=== PATIENT | female | born 1965 | race Caucasian/White ===

== ENCOUNTER 2023-09-25 23:14 | Emergency (ER) | payer MEDICAID, SELFPAY ==
[2023-09-25 23:30] VITALS: BP 146/86; PULSE 96; O2SAT 98; BMI 17.8
[2023-09-25 23:35] VITALS: BP 170/84; PULSE 80; RESP 17; TEMP 36.3; O2SAT 98
--- NOTE | 2023-09-25 23:43 | PC.NURSE ---
called shira vergara she has the right to refuse at this time
--- NOTE | 2023-09-25 23:57 | PC.NURSE ---
pt refused fluids and ekg , provider aware
[2023-09-26 00:02] LABS: Basophils Percent Auto 0.1 % (0-2); Eosinophils Absolute Auto 0.2 X10*3/uL (0.0-0.4); Eosinophils Percent Auto 2.5 % (0-4); Hematocrit 38.9 % (37.0-47.0); Hemoglobin 13.8 g/dl (12.0-16.0); Imm Gran Abs Auto 0.01 X10*3/uL (0.00-0.03); Imm Gran Pct Auto 0.1 % (0.0-0.4); Lymphocytes Absolute Auto 3.5 X10*3/uL (1.2-4.9); Lymphocytes Percent Auto 45.1 % (20-40); MANUAL DIFF FLAG NO; Mean Corpuscular HGB Conc 35.5 g/dl (31.0-35.0); Mean Corpuscular Hemoglobin 29.6 pg (27.0-33.0); Mean Corpuscular Volume 83.5 fL (80.0-98.0); Mean Platelet Volume 10.5 fL (9.4-12.3); Monocytes Absolute Auto 0.5 X10*3/uL (0.1-1.2); Neutrophils Absolute Auto 3.5 x10*3/uL (2.0-8.3); Neutrophils Percent Auto 45.2 % (45-73); Platelet Count 243 X10*3/uL (160-400); Red Blood Count 4.66 X10*6/uL (4.20-5.50); Red Cell Distribution Width 12.4 % (11.0-16.0); White Blood Count 7.7 X10*3/uL (4.8-10.8)
[2023-09-26 00:19] LABS: Anion Gap 12 (12-20); Blood Urea Nitrogen 10 mg/dL (9-16); Calcium 9.5 mg/dL (8.4-10.2); Carbon Dioxide 31 mmol/L (22-29); Chloride 104 mmol/L (96-108); Creatinine Clr Calc Pharmacy 59.7; Estimated Glomerular Filt Rate > 60; Glucose Random 136 mg/dL (60-115); Magnesium 1.9 mg/dL (1.6-2.6); Potassium 2.7 mmol/L (3.3-5.1); Sodium 144 mmol/L (135-145)
[2023-09-26] MEDS: Potassium Chloride/H20 10 MEQ/100 ML PIGGYBACK 100 MEQ IV (00:47)
--- NOTE | 2023-09-26 02:17 | MHC.EDTECH ---
Patient Refused EKG. RN aware
--- NOTE | 2023-09-26 02:53 | ED_ITS ---
HPI - General Adult General Chief complaint: Psychiatric Symptoms Stated complaint: dehydrated? low potassium Time Seen by Provider: 09/25/23 23:15 Source: EMS Mode of arrival: EMS Limitations: language barrier History of Present Illness ED Provider: Dr. Hu HPI narrative: Patient is a new admission to [facility], she was sent to the ED because she is refusing to drink and eat and refusing to take her potassium. Onset (ago): week(s) Related Data Allergies Allergy/AdvReac Type Severity Reaction Status Date / Time No Known Allergies Allergy Verified 09/25/23 23:32 Review of Systems 2 Review of Systems: Yes all other systems are reviewed and are negative Neurologic: Denies Sensory deficit (Neuro) PMFSH Social History Social History Advance Directives: No Advance Directives Information Provided: Yes Physical Exam ED Vital Signs: Vital Signs - 24 hr 09/25/23 23:35 Temperature 97.4 F Pulse Rate 80 Respiratory Rate 17 Blood Pressure 170/84 H Pulse Oximetry 98 Oxygen Delivery Method Room Air BMI result Body Mass Index 17.8 Const Other: Female looking older than stated age flat affect Orientation/consciousness: oriented to person and patient oriented x3 Limitations: no limitations HENMT Head: Yes normal to inspection Ears: external ears normal General nose exam: Normal external nose present Mouth: Normal oral and palatal mucosa present and oropharynx normal Throat: Yes posterior oropharynx normal Eyes General: appearance normal, both eyes and all related structures Neck Neck: Yes normal visual inspection Chest Chest palpation & inspection: normal inspection of the chest Resp Auscultation: clear to auscultation bilaterally Cardio Jugular venous distension: no JVD Rate: regular rate Rhythm: regular rhythm Heart sounds: S1 normal heart sound present and S2 normal heart sound present GI Inspection: Yes normal to inspection Palpation (GI): Soft to palpation, nontender and No hepatosplenomegaly present Auscultation: normal bowel sounds General: Yes no CVA tenderness Back/Spine/Pelvis Back: no CVA tenderness Skin General skin exam: no rashes or lesions noted Neuro General: oriented to person and patient oriented x3 Cranial nerves: Yes CN's II-XII intact bilaterally Motor exam (neuro): 5/5 motor strength present throughout Sensory Exam: No Sensory deficit (Neuro) Extrem General: Yes normal to inspection Psych Appearance: grossly normal Course Reevaluation(s) Reevaluation #1: Patient refusing to eat or drink refusing to get IV fluids Time: 02:56 Medications Administered Discontinued Medications Generic Name Dose Route Start Last Admin Trade Name Jamee PRN Reason Stop Dose Admin Sodium Chloride 1,000 mls @ 500 mls/hr 09/25/23 23:30 09/25/23 23:56 Ns IVCONT 09/26/23 01:29 Not Given .Q2H CHAVEZ Potassium Chloride 10 meq in 100 mls @ 100 mls/hr 09/26/23 00:21 09/26/23 00:47 Potassium Chloride/H20 IV 09/26/23 01:20 100 mls/hr ONCE ONE Administration Potassium Chloride 20 meq 09/26/23 00:21 09/26/23 00:47 Potassium Chloride Er 20 Meq Tab.Er.Prt PO 09/26/23 00:22 Not Given ONCE ONE Medical Decision Making Differential Diagnosis Differential Diagnoses: The differential diagnosis associated with the presentation includes (hypokalemia, dehydration, depression) Admission/Observation Consideration of admission/observation: Escalation of care including admission/observation considered (upon arrival patient considered for admission) Lab Data 09/25/23 23:57 09/25/23 23:57 Labs: Lab Results 09/25/23 Range/Units 23:57 WBC 7.7 (4.8-10.8) X10*3/uL RBC 4.66 (4.20-5.50) X10*6/uL Hgb 13.8 (12.0-16.0) g/dl Hct 38.9 (37.0-47.0) % MCV 83.5 (80.0-98.0) fL MCH 29.6 (27.0-33.0) pg MCHC 35.5 H (31.0-35.0) g/dl RDW 12.4 (11.0-16.0) % Plt Count 243 (160-400) X10*3/uL MPV 10.5 (9.4-12.3) fL Immature Gran % (Auto) 0.1 (0.0-0.4) % Neut % (Auto) 45.2 (45-73) % Lymph % (Auto) 45.1 H (20-40) % [place] % (Auto) 7.0 (2-11) % Eos % (Auto) 2.5 (0-4) % Baso % (Auto) 0.1 (0-2) % Lymph # (Auto) 3.5 (1.2-4.9) X10*3/uL [place] # (Auto) 0.5 (0.1-1.2) X10*3/uL Eos # (Auto) 0.2 (0.0-0.4) X10*3/uL Baso # (Auto) 0.0 (0.0-0.2) X10*3/uL Abs Immat Gran (auto) 0.01 (0.00-0.03) X10*3/uL Absolute Neuts (auto) 3.5 (2.0-8.3) x10*3/uL Absolute Nucleated RBC 0.000 (0.0-0.012) X10*3/uL Nucleated RBC % (auto) 0.0 (0.0-0.2) /100WBC Sodium 144 (135-145) mmol/L Potassium 2.7 L* (3.3-5.1) mmol/L Chloride 104 (96-108) mmol/L Carbon Dioxide 31 H (22-29) mmol/L Anion Gap 12 (12-20) BUN 10 (9-16) mg/dL Creatinine 0.73 (0.5-1.4) mg/dL Estim Creat Clear Calc 59.7 Estimated GFR > 60 Random Glucose 136 H (60-115) mg/dL Calcium 9.5 (8.4-10.2) mg/dL Magnesium 1.9 (1.6-2.6) mg/dL Independent Historian Clinical information obtained from an independent historian. History obtained from or confirmed by: EMS Chronic Conditions Patient?s care impacted by: Other (psychiatric illness) Social Determinants Patient?s care significantly limited by Social Determinants of Health including: Low income Discharge Plan Discharge Clinical Impression: Depression, Acute hypokalemia Patient Disposition: Xfer Psychiatric Hosp Transfer Details: return back to [facility] Instructions: Potassium Content of Foods List (ED), Hypokalemia (ED) Print Language: Citizen Of [place]
--- NOTE | 2023-09-26 03:09 | PC.NURSE ---
nurse to nurse report given
[2023-09-26 03:10] VITALS: BP 170/84; PULSE 80; RESP 17; TEMP 36.3; O2SAT 98
--- NOTE | 2023-09-26 03:15 | PC.NURSE ---
When I spoke to Kadi Vergara RN earlier this evening, she reported via phone call that Kadi Vergara is not too familiar with the pt however she states that she has the capacity to refuse meds/treatment ( not on antunez order) and that the pt told them she had CP. Pt states that she denied ever having CP and that Kadi vergara sent her against my own will . K was 2.7- pt refused PO medication however allowed us to replace via IV. Pt also refused EKG and fluids. Provider made aware
[2023-09-26 05:27] VITALS: BP 170/84; PULSE 80; RESP 17; TEMP 36.7
== END 2023-09-26 05:28 ==
PROVIDERS: Emergency Provider Emergency Medicine
DX: F32.A Depression, unspecified (principal); E87.6 Hypokalemia; R44.0 Auditory hallucinations
CPT/HCPCS: 36415; 80048; 83735; 85025; 96365; 96366; 99284; 99285; J3480

== ENCOUNTER 2023-09-30 16:45 | Emergency (ER) | payer MEDICAID, SELFPAY ==
--- NOTE | 2023-09-30 16:55 | ECG_ITS ---
Test Reason : ELECTROLYTE DISTURBANCE Blood Pressure : / mmHG Vent. Rate : 077 BPM Atrial Rate : 077 BPM P-R Int : 116 ms QRS Dur : 086 ms QT Int : 416 ms P-R-T Axes : 069 058 014 degrees QTc Int : 470 ms Normal sinus rhythm Nonspecific ST abnormality Abnormal ECG No previous ECGs available Referred By: Mercedez Vang Electronically Signed By:RONNI MAJOR
[2023-09-30 17:09] VITALS: BP 132/92; PULSE 88; O2SAT 95; BMI 16.8
[2023-09-30 17:18] VITALS: BP 112/78; PULSE 84; RESP 16; TEMP 36.3; O2SAT 98
--- NOTE | 2023-09-30 17:22 | ED.GENADULT ---
HPI - General Adult General Chief complaint: Failure to Thrive Stated complaint: FAILURE TO THRIVE Time Seen by Provider: 09/30/23 16:52 Source: EMS Mode of arrival: EMS Limitations: other ( unwilling to talk much) History of Present Illness ED Provider: Dr. Mercedez Vang HPI narrative: patient comes to the emergency room via ambulance from [facility] [address]. According to the caretakers at [facility], the patient's potassium today was 2.9. They reported that the patient has been refusing to eat, because patient has told them that patient believes that the food has been poisoned Upon arrival, patient states that she is very hungry and wants pudding. Patient refusing to talk about anything else other than wanting to eat pudding Related Data Allergies Allergy/AdvReac Type Severity Reaction Status Date / Time No Known Allergies Allergy Verified 09/30/23 17:13 Review of Systems Review of Systems: Constitutional : No Weight loss, No Fever, No Chills, No Night Sweats, No Fatigue, No Malaise ENT/Mouth : No Hearing loss, No Ear Pain, No Nasal Congestion, No Sinus Pain, No Hoarseness, No sore throat, No Rhinorrhea, No Swallowing Difficulty Eyes: No Eye Pain, No Swelling, No Redness, No Foreign Body, No Discharge, No Vision Changes Cardiovascular : No Chest Pain, No SOB, No Dyspnea on Exertion, No Orthopnea, No Edema, No Palpitations Respiratory : No Cough, No Sputum, No Wheezing, No Smoke Exposure, No Dyspnea Gastrointestinal : No Nausea, No Vomiting, No Diarrhea, No Constipation, No abdominal Pain, No Hematochezia, No Melena Genitourinary : no irregular bleeding, No Dysuria, No Urinary Frequency, No Hematuria, No Urinary Incontinence, No Urgency, No Flank Pain, No Urinary Flow Changes, No Hesitancy Musculoskeletal : No joint pain, No Myalgias, No Joint Swelling Skin : No Skin Lesions, No rash Neuro : No Weakness, No Numbness, No Paresthesias, No Loss of Consciousness, No Dizziness, No Headache Psych : No Anxiety/Panic, No Depression, No SI/HI/AH/VH, No Social Issues, Heme/Lymph: No Bruising, No Bleeding,No Lymphadenopathy Endocrine : No Polyuria, No Polydipsia, No Temperature Intolerance Yes Other ( unwilling to talk) [facility] Past Medical History Medical History Continuous auditory hallucinations Social History Social History Smoked in Last 30 Days: No Use of substances other than those prescribed or required for medical reasons: No Advance Directives: No Advance Directives Information Provided: No Do you have a plan to hurt others: No Plan Patient : No Physical Exam ED Vital Signs: Vital Signs - 24 hr 09/30/23 17:18 09/30/23 21:59 Temperature 97.3 F Pulse Rate 84 93 Respiratory Rate 16 16 Blood Pressure 112/78 134/92 H Pulse Oximetry 98 98 Oxygen Delivery Method Room Air Room Air BMI result Body Mass Index 16.8 Const Other: Appearance: Alert. no acute distress Eyes: Pupils equal, round and reactive to light. ENT: Pharynx normal. Neck: Normal inspection. Neck supple. No lymph nodes noted. No crepitus CVS: Normal heart rate and rhythm. Pulses normal. Normal S1 and S2 Respiratory: No respiratory distress. Breath sounds normal. No Wheezing. No rales Abdomen: Soft and nontender. No rigidity. No distention. Skin: Skin warm and dry. Normal skin color. Normal skin turgor. Extremities: No lower extremity edema. No Lacerations. No Rash Neuro: Oriented X 3. No motor deficit. No sensory deficit. Moving all extremities. No slurred speech. CN 2 through 12 grossly intact Psych: calm, cooperative, normal affect Course Course Course Narrative: - I discussed with the patient that we will repeat the lab work and we will also give her pudding Medications Administered Generic Name Dose Route Start Last Admin Trade Name Freq PRN Reason Stop Dose Admin Potassium Chloride 10 meq in 100 mls @ 100 mls/hr 10/01/23 01:15 10/01/23 01:55 Potassium Chloride/H20 IV 10/01/23 05:14 100 mls/hr Q1H CHAVEZ Administration Discontinued Medications Generic Name Dose Route Start Last Admin Trade Name Freq PRN Reason Stop Dose Admin Potassium Chloride 40 meq 10/01/23 00:42 10/01/23 01:56 Potassium Chloride Er 20 Meq Tab.Er.Prt PO 10/01/23 00:43 Not Given ONCE ONE Medical Decision Making Medical Decision Making MDM Narrative: my interpretation of labs: Normal hematology, Chemistry shows a potassium of 2.9. - Patient is refusing to eat anything p.o.. Patient refusing to take potassium p.o. either pill form or liquid form. However, patient states that she is agreeable to take potassium through her vein. - A line has been inserted, patient is getting potassium IV, four piggyback of 10 mEq will be given, should be ready for discharge in the morning. - Sign-out given to my colleague Dr. Blake Differential Diagnosis Differential Diagnoses: The differential diagnosis associated with the presentation includes ( anorexia, hypokalemia) Admission/Observation Consideration of admission/observation: Escalation of care including admission/observation considered ( given patient's anorexia and labs, observation was considered) Lab Data [facility] Lab Attestation statement: I reviewed the patient's lab results. 09/30/23 23:32 09/30/23 23:32 Labs: Lab Results 09/30/23 09/30/23 Range/Units 18:18 23:32 WBC 8.7 (4.8-10.8) X10*3/uL RBC 5.26 (4.20-5.50) X10*6/uL Hgb 15.6 (12.0-16.0) g/dl Hct 43.8 (37.0-47.0) % MCV 83.3 (80.0-98.0) fL MCH 29.7 (27.0-33.0) pg MCHC 35.6 H (31.0-35.0) g/dl RDW 12.3 (11.0-16.0) % Plt Count 282 (160-400) X10*3/uL MPV 10.5 (9.4-12.3) fL Immature Gran % (Auto) 0.2 (0.0-0.4) % Neut % (Auto) 42.6 L (45-73) % Lymph % (Auto) 47.2 H (20-40) % [place] % (Auto) 7.0 (2-11) % Eos % (Auto) 2.9 (0-4) % Baso % (Auto) 0.1 (0-2) % Lymph # (Auto) 4.1 (1.2-4.9) X10*3/uL [place] # (Auto) 0.6 (0.1-1.2) X10*3/uL Eos # (Auto) 0.3 (0.0-0.4) X10*3/uL Baso # (Auto) 0.0 (0.0-0.2) X10*3/uL Abs Immat Gran (auto) 0.02 (0.00-0.03) X10*3/uL Absolute Neuts (auto) 3.7 (2.0-8.3) x10*3/uL Absolute Nucleated RBC 0.000 (0.0-0.012) X10*3/uL Nucleated RBC % (auto) 0.0 (0.0-0.2) /100WBC Sodium 140 (135-145) mmol/L Potassium 2.9 L* (3.3-5.1) mmol/L Chloride 102 (96-108) mmol/L Carbon Dioxide 28 (22-29) mmol/L Anion Gap 13 (12-20) BUN 12 (9-16) mg/dL Creatinine 0.81 (0.5-1.4) mg/dL Estim Creat Clear Calc 57.5 Estimated GFR > 60 Random Glucose 136 H (60-115) mg/dL Calcium 10.0 (8.4-10.2) mg/dL Magnesium 2.0 (1.6-2.6) mg/dL Total Bilirubin 1.2 H (0.0-1.0) mg/dL Direct Bilirubin 0.3 (0.0-0.5) mg/dL AST 18 (5-31) U/L ALT 9 (0-31) U/L Alkaline Phosphatase 61 (39-117) U/L Total Protein 7.2 (6.5-8.0) g/dL Albumin 4.1 (3.5-5.0) g/dL Lipase 27 (8-78) U/L COVID-19 (RAMÓN) Negative (Negative) COVID-19 Clin Com See Note Critical Care Time Critical Care Time Critical Care Time: Yes Total Critical Care Time: 75 Attestation: I have personally provided critical care time. Time includes review of lab data, radiology results, discussion with consultants, and monitoring for potential decompensation. Intervention performed as documented. Discharge Plan Discharge Clinical Impression: Acute hypokalemia, Refuses to eat Patient Disposition: Xfer Other Transfer Details: [facility] Instructions: Hypokalemia (ED), Potassium Content of Foods List (ED), Failure to Thrive in Older Adults (ED) Print Language: Gu[place]ian
--- NOTE | 2023-09-30 17:30 | PC.NURSE ---
pt [facility]/t [facility]TT - minimal PO intake lately. SNF reports pt has eaten 2 pudding cups x 4 days. labs obtained at [facility] displaying K+ 2.9. pt recently went to [facility] and was dx of anorexia. hx auditory hallucinations. pt is on a [address]. paraprofessional interpreter services utilized upon ED arrival. pt refusing to be changed over by security - states she is unable to walk right now because she has not been able to eat. pt also refusing to obtain urine sample since she is unable to ambulate at this time. pt also refusing for IV to be placed/labs to be obtained. pt continuously repeating, i do not have any blood. provider notified/aware. will reattempt.
--- NOTE | 2023-09-30 18:22 | PC.NURSE ---
attempted to insert IV/obtain labs. pt refused. although, covid swab was able to be obtained. provider notified/aware. will reattempt shortly. 1:1 sitter remains present.
[2023-09-30 18:40] LABS: COVID-19 Test Negative (Negative); IDNOW Serial# 58CA691E
--- NOTE | 2023-09-30 19:48 | PC.NURSE ---
tech reattempted to obtain labs at this time. pt refused stating, i don't have any blood. provider notified/aware.
--- NOTE | 2023-09-30 19:49 | MHC.EDTECH ---
Patient refused for this PCT to draw her labs RN aware
--- NOTE | 2023-09-30 21:34 | MHC.EDTECH ---
patient ate two sandwichs and two ice creams patient refused for blood to be drawn
[2023-09-30 21:59] VITALS: BP 134/92; PULSE 93; RESP 16; O2SAT 98
--- NOTE | 2023-09-30 22:13 | PC.NURSE ---
pt still refusing for lab work to be obtained. provider notified/aware.
[2023-09-30 23:35] LABS: MANUAL DIFF FLAG NO
[2023-09-30 23:36] LABS: Basophils Percent Auto 0.1 % (0-2); Eosinophils Absolute Auto 0.3 X10*3/uL (0.0-0.4); Eosinophils Percent Auto 2.9 % (0-4); Hematocrit 43.8 % (37.0-47.0); Hemoglobin 15.6 g/dl (12.0-16.0); Imm Gran Abs Auto 0.02 X10*3/uL (0.00-0.03); Imm Gran Pct Auto 0.2 % (0.0-0.4); Lymphocytes Absolute Auto 4.1 X10*3/uL (1.2-4.9); Lymphocytes Percent Auto 47.2 % (20-40); Mean Corpuscular HGB Conc 35.6 g/dl (31.0-35.0); Mean Corpuscular Hemoglobin 29.7 pg (27.0-33.0); Mean Corpuscular Volume 83.3 fL (80.0-98.0); Mean Platelet Volume 10.5 fL (9.4-12.3); Monocytes Absolute Auto 0.6 X10*3/uL (0.1-1.2); Neutrophils Absolute Auto 3.7 x10*3/uL (2.0-8.3); Neutrophils Percent Auto 42.6 % (45-73); Platelet Count 282 X10*3/uL (160-400); Red Blood Count 5.26 X10*6/uL (4.20-5.50); Red Cell Distribution Width 12.3 % (11.0-16.0); White Blood Count 8.7 X10*3/uL (4.8-10.8)
--- NOTE | 2023-09-30 23:55 | MHC.EDTECH ---
Patient refused vitals
[2023-10-01 00:02] LABS: Alanine Aminotransferase 9 U/L (0-31); Albumin Level 4.1 g/dL (3.5-5.0); Alkaline Phosphatase 61 U/L (39-117); Anion Gap 13 (12-20); Aspartate Amino Transferase 18 U/L (5-31); Bilirubin Direct 0.3 mg/dL (0.0-0.5); Bilirubin Total 1.2 mg/dL (0.0-1.0); Blood Urea Nitrogen 12 mg/dL (9-16); Carbon Dioxide 28 mmol/L (22-29); Chloride 102 mmol/L (96-108); Creatinine Clr Calc Pharmacy 57.5; Estimated Glomerular Filt Rate > 60; Glucose Random 136 mg/dL (60-115); Lipase 27 U/L (8-78); Potassium 2.9 mmol/L (3.3-5.1); Sodium 140 mmol/L (135-145); Total Protein 7.2 g/dL (6.5-8.0)
[2023-10-01] MEDS: Potassium Chloride/H20 10 MEQ/100 ML PIGGYBACK 100 MEQ IV ×2 (01:55→03:03)
--- NOTE | 2023-10-01 02:06 | PC.NURSE ---
Iv started in right ac, medicated per Mar. pt placed on bedside monitor.
[2023-10-01 02:34] VITALS: PULSE 69; RESP 19
[2023-10-01 03:49] VITALS: PULSE 73; RESP 15
--- NOTE | 2023-10-01 04:39 | PC.NURSE ---
Pt refusing the remainder of her IV Potassium, Provider aware.
[2023-10-01 04:45] VITALS: BP 136/78; PULSE 63; RESP 15; TEMP 36.2; O2SAT 95
[2023-10-01 05:57] VITALS: BP 149/82; PULSE 60; RESP 15; TEMP 37.1; O2SAT 98
--- NOTE | 2023-10-01 06:31 | PC.NURSE ---
update given to Shen vergara pt awaiting transport back to facility
[2023-10-01 06:47] VITALS: O2SAT 98
--- NOTE | 2023-10-01 06:47 | PC.NURSE ---
medicated per Mar.
--- NOTE | 2023-10-01 06:48 | PC.NURSE ---
Iv is intact
== END 2023-10-01 06:50 ==
PROVIDERS: Emergency Medicine; Emergency Provider Emergency Medicine
DX: R62.7 Adult failure to thrive (principal); E87.6 Hypokalemia; R94.31 Abnormal electrocardiogram [ECG] [EKG]; Z11.52 Encounter for screening for COVID-19; Z79.899 Other long term (current) drug therapy
CPT/HCPCS: 80048; 80076; 83690; 83735; 85025; 87635; 93005; 99285; J3480

== ENCOUNTER → 2023-09-30 16:55 | Outpatient (BNV) | payer MEDICAID, SELFPAY | PROVIDERS: Emergency Provider Emergency Medicine; Visit Provider Internal Medicine | DX: R94.31 Abnormal electrocardiogram [ECG] [EKG] (principal) | CPT/HCPCS: 93010 ==